=== PATIENT | female | born 1940 | race Caucasian/White ===

== ENCOUNTER 2016-08-31 12:20 | Emergency (ER) | payer MEDICARE, BC ==
[~2016-08-31 12:20] MED LIST: ADULT ASPIRIN81 MG PO; ADULT LOW DOSE81 M1 PO; ALIGN PO; ALIGN4 M1 PO; ALIGN4 MG PO; ALPHAGAN P10 ML OP; ALPHAGAN P5 M1 OP; ALPHAGAN P5 M1 RIGHT EYE; AMBIEN5 MG PO; AMITIZA8 MCG PO; AMLODIPINE BES2.5 M1 PO; AMLODIPINE BESY10 MG PO; AMLODIPINE BESYL5 MG PO; AMOXICILLIN875 M1 PO; ANTIVERT12.5 MG PO; ARICEPT5 M1 PO; ASPIRIN EC81 MG PO; ASPIRIN325 MG PO; ASPIRIN81 M1 PO; ATIVAN0.5 M1 PO; B-12500 MC1 PO; BENTYL20 MG PO; BETIMOL15 M OP; CALCIUM600 MG; CARAFATE PO; CARAFATE1 G2 PO; CARAFATE1 GM/10 M1 PO; CEFDINIR300 M1 PO; CENTRUM COMPLE1 EAC1 PO; CENTRUM SILVER1 EAC3 PO; CEPHALEXIN500 M1 PO; CHOLESTYRAMINE; CITRATE OF MAG300 ML PO; COLACE100 MG PO; COSOPT EYE DROP10 ML RIGHT EYE; CYCLOBENZAPRINE PO; CYCLOBENZAPRINE10 M1 PO; CYCLOBENZAPRINE5 M1 PO; CYMBALTA30 MG PO; DAILY MULTIPLE1 EAC2 PO; DEXILANT PO; DEXILANT30 M1 PO; DEXILANT60 M1 PO; DORZOLAMIDE HCL10 M1 OP; DORZOLAMIDE HCL10 M1 RIGHT EYE; DORZOLAMIDE-TIM10 ML OP; DOXYCYCLINE HY100 M3 PO; DULCOLAX10 MG/SUPP RC; FAMOTIDINE20 M1 PO; FLAX OIL1000 MG PO; FLAX SEED OIL1 EAC1 PO; FLAX SEED OIL1000 M1 PO; FLAXSEED OIL PO; FLEXERIL; GLYBURIDE5 MG PO; HYDROCHLOROTHIA25 MG; HYDROCHLOROTHIA25 MG PO; HYDROCODON-ACE1 EA17 PO; HYDROCODON-ACE1 EAC7 PO; HYDROCODONE; IMDUR30 MG PO; K-TAB ER20 ME1 PO; KEFLEX500 M4 PO; LEVEMIR FL100 UNIT/2 SC; LEVEMIR FL100 UNIT/2 SQ; LEVEMIR100 U/ML SQ; LEVEMIR100 UNITS/ SC; LINZESS; LINZESS145 MCG PO; LIPITOR20 MG; LISINOPRIL20 M1 PO; LISINOPRIL30 M1 PO; LISINOPRIL40 MG; LISINOPRIL40 MG PO; LOMOTIL1 TAB PO; LUMIGAN EACH EYE; LUMIGAN2.5 M1 OP; LUMIGAN2.5 M2 EACH EYE; LUMIGAN2.5 ML; LYRICA100 MG PO; LYRICA100 MG/CAP PO; LYRICA75 MG PO; MAGNESIUM OXID400 M1 PO; MAGNESIUM OXID400 MG PO; MAGNESIUM250 M2 PO; MAGNESIUM250 M3 PO; MAGNESIUM400 MG PO; MELATONIN3 M4 PO; METAMUCIL1 PKT PO; METFORMIN HCL850 MG; MILK OF MA400 MG/5 M PO; MIRALAX12 EA PO; MIRALAX17 G1 PO; MIRTAZAPINE15 MG PO; MULTIVITAMIN1 TAB PO; MUSCLE RELAXANT; NAMENDA5 M1 PO; NEOMYCIN POLYMY OT; NORCO 5-325 TA1 EACH PO; NORCO 7.5-3251 EACH PO; NORVASC10 M2 PO; NORVASC2.5 M1 PO; NORVASC2.5 MG PO; NORVASC5 M1 PO; NORVASC5 M2 PO; NORVASC5 MG PO; NOVOLOG FL100 UNIT/2 SC; NOVOLOG100 UNITS/ SC; NUCYNTA50 MG PO; OMEGA 3-6-9 11200 MG PO; OMEPRAZOLE BIC PO; ONGLYZA5 MG PO; OXYCODONE HCL5 MG PO; PANTOPRAZOLE SO40 M3 PO; PEPCID AC10 MG PO; PERCOCET 5/3251 TAB; PERCOCET 5/3251 TAB PO; PERCOCET 5MG/AP1 TA1 PO; PERCOCET 5MG/AP1 TAB PO; PHENERGAN12.5 MG; PHENERGAN25 MG/SUP1 PR; POTASSIUM CHLO20 ME3 PO; PRAVACHOL20 M1 PO; PRAVACHOL20 MG PO; PRAVASTATIN SOD20 M1 PO; PRILOSEC20 MG PO; PROTONIX20 M2 PO; PROTONIX40 M2 PO; QUETIAPINE FUMA25 M1 PO; RANITIDINE HCL150 M2 PO; RANITIDINE HCL150 M3 PO; RANITIDINE PO; REGLAN5 M1 PO; RESTORIL7.5 MG/CAP PO; SEROQUEL25 M2 PO; SKELAXIN800 MG PO; SUPER OMEGA-31000 MG; TRAMADOL HCL50 MG PO; TRUSOPT10 ML OP; TYLENOL325 M1 PO; ULTRAM50 MG PO; VALIUM5 M1 PO; VIBRAMYCIN100 M1 PO; VITAMIN B-121000 MC1 PO; VITAMIN B12-FO1 EAC1 PO; VITAMIN D3400 UNI4 PO; VITAMIN D35000 UNI2 PO; VITAMIN D35000 UNI3 PO; ZANTAC 7575 M1 PO; ZESTRIL20 M2 PO; ZESTRIL30 M1 PO; ZITHROMAX500 M2 PO; ZOFRAN ODT4 MG PO; ZOFRAN ODT4 MG/UDTAB PO; [UNRECOGNIZED DRUG - CODE] PO; [UNRECOGNIZED DRUG - OTHER]
[2016-08-31 13:21] LABS: BASO % 0.4 % (0-2); EOS % 1.5 % (0-7); EOSINOPHIL ABSOLUTE COUNT 0.1 tho/cmm (0.0-0.7); HCT-HEMATOCRIT 38.6 % (34.0-49.0); HGB-HEMOGLOBIN 13.5 gm/dl (12.0-15.5); IMMATURE GRANULOCYTES ABSOLUTE 0.01 tho/cmm (0-0.03); IMMATURE GRANULOCYTES PERCENT 0.1 % (0-0.3); LYMPH % 22.5 % (20-45); LYMPH ABSOLUTE COUNT 1.8 tho/cmm (0.8-4.5); MCH (MEAN CORPUSCULAR HGB) 32.2 pg (28.0-32.0); MCV (MEAN CELL VOLUME) 92.1 fl (82.0-96.0); MEAN PLATELET VOLUME 9.7 cmc (9.4-12.4); MONOCYTE ABSOLUTE COUNT 0.7 tho/cmm (0.0-1.2); NEUTROPHIL ABSOLUTE COUNT 5.4 tho/cmm (1.6-8.0); NEUTROPHIL-AUTOMATED 5.4 tho/cmm (1.6-8.0); NEUTROPHILS % 66.5 % (40-80); PLATELET COUNT 197 tho/cmm (150-450); RED BLOOD COUNT 4.19 mil/cmm (4.00-5.20); RED CELL DISTRIBUTION WIDTH 13.4 % (12.4-16.4); WHITE BLOOD COUNT 8.1 tho/cmm (4.0-10.0)
[2016-08-31 13:40] LABS: ALB/GLOB RATIO 1.1 (0.8-2.0); ALBUMIN 3.5 g/dl (3.5-5.0); ALKALINE PHOSPHATASE 122 U/L (33-138); ALT/SGPT 92 U/L (12-78); ANION GAP 11 mmol/L (0-20); AST/SGOT 134 U/L (10-40); BILIRUBIN,TOTAL 0.5 mg/dl (0-1.5); BLOOD UREA NITROGEN 17 mg/dl (6-24); CALCIUM 9.2 mg/dl (8.5-10.5); CARBON DIOXIDE-VENOUS 29 mmol/L (22-32); CHLORIDE 105 mmol/l (96-110); CREATININE 0.56 mg/dl (0.50-1.10); GLUCOSE 115 mg/dL (70-110); POTASSIUM 3.8 mmol/L (3.7-5.1); SODIUM 141 mmol/L (135-145); eGFR VALUE FOR BLACK >90 mL/Min
[2016-08-31] MEDS ORDERED: COLACE100 M1 PO (14:02)
[2016-12-29] MEDS ORDERED: LORAZEPAM0.5 M1 PO (11:59)
== END 2016-08-31 14:20 ==
LOC: EDMED 12:20
PROVIDERS: Emergency Medicine
DX: K59.00 Constipation, unspecified (principal); I10 Essential (primary) hypertension; K21.9 Gastro-esophageal reflux disease without esophagitis; E10.9 Type 1 diabetes mellitus without complications; E78.5 Hyperlipidemia, unspecified; I25.10 Atherosclerotic heart disease of native coronary artery without angina pectoris; Z87.01 Personal history of pneumonia (recurrent); Z86.718 Personal history of other venous thrombosis and embolism; Z90.49 Acquired absence of other specified parts of digestive tract

== ENCOUNTER 2016-09-30 23:45 | Emergency (ER) | payer MEDICARE, BC ==
[~2016-09-30 23:45] MED LIST changes: +COLACE100 M1 PO
[2016-10-01] MEDS ORDERED: ORPHENADRINE C100 M1 PO (00:22)
[2016-12-29] MEDS ORDERED: LORAZEPAM0.5 M1 PO (11:59)
== END 2016-10-01 00:34 ==
LOC: EDMED 23:45
DX: M62.830 Muscle spasm of back (principal); F03.90 Unspecified dementia, unspecified severity, without behavioral disturbance, psychotic disturbance, mood disturbance, and anxiety; E11.9 Type 2 diabetes mellitus without complications; I10 Essential (primary) hypertension; Z90.49 Acquired absence of other specified parts of digestive tract
CPT/HCPCS: J2360

== ENCOUNTER 2016-10-04 | Observation (INO) | payer MEDICARE, BC ==
[~2016-10-04] MED LIST changes: +ORPHENADRINE C100 M1 PO
[2016-10-04] MEDS ORDERED: WOMEN'S DAILY1 EAC6 PO (01:40)
[2016-10-04] MEDS ORDERED: COSOPT EYE DROP10 ML RIGHT EYE (09:41)
[2016-10-04] MEDS ORDERED: ICY HOT1 EAC1 TOP (14:49)
[2016-10-04] MEDS ORDERED: ASPERCREME76.5 GM TOP (14:49)
[2016-10-04] MEDS ORDERED: MELATONIN3 M4 PO (14:50)
[2016-12-29] MEDS ORDERED: LORAZEPAM0.5 M1 PO (11:59)
== END 2016-10-04 16:00 ==
DX: G89.29 Other chronic pain (principal); M54.9 Dorsalgia, unspecified; F03.90 Unspecified dementia, unspecified severity, without behavioral disturbance, psychotic disturbance, mood disturbance, and anxiety; D72.829 Elevated white blood cell count, unspecified; I10 Essential (primary) hypertension; E11.9 Type 2 diabetes mellitus without complications; E78.5 Hyperlipidemia, unspecified; I25.10 Atherosclerotic heart disease of native coronary artery without angina pectoris; H40.9 Unspecified glaucoma; K21.9 Gastro-esophageal reflux disease without esophagitis; Z79.4 Long term (current) use of insulin; Z79.899 Other long term (current) drug therapy; Z91.018 Allergy to other foods; Z87.891 Personal history of nicotine dependence; Z90.49 Acquired absence of other specified parts of digestive tract; Z98.890 Other specified postprocedural states

== ENCOUNTER 2016-10-07 | Emergency (ER) | payer MEDICARE, BC ==
[~2016-10-07] MED LIST changes: +ASPERCREME76.5 GM TOP; +ICY HOT1 EAC1 TOP; +WOMEN'S DAILY1 EAC6 PO
[2016-10-08] MEDS ORDERED: MACROBID 100 M100 M1 PO (14:25)
[2016-10-08] MEDS ORDERED: PYRIDIUM200 M2 PO (14:25)
[2016-12-29] MEDS ORDERED: LORAZEPAM0.5 M1 PO (11:59)
== END 2016-10-07 22:10 ==
DX: F03.90 Unspecified dementia, unspecified severity, without behavioral disturbance, psychotic disturbance, mood disturbance, and anxiety (principal); F20.9 Schizophrenia, unspecified; Z79.899 Other long term (current) drug therapy

== ENCOUNTER 2016-10-08 | Emergency (ER) | payer MEDICARE, BC ==
[2016-10-08] MEDS ORDERED: PYRIDIUM200 M2 PO (14:25)
[2016-10-08] MEDS ORDERED: MACROBID 100 M100 M1 PO (14:25)
[2016-12-29] MEDS ORDERED: LORAZEPAM0.5 M1 PO (11:59)
== END 2016-10-08 14:31 ==
DX: N39.0 Urinary tract infection, site not specified (principal); E11.9 Type 2 diabetes mellitus without complications; I10 Essential (primary) hypertension; F03.90 Unspecified dementia, unspecified severity, without behavioral disturbance, psychotic disturbance, mood disturbance, and anxiety; K21.9 Gastro-esophageal reflux disease without esophagitis; Z90.49 Acquired absence of other specified parts of digestive tract; Z90.89 Acquired absence of other organs; Z79.4 Long term (current) use of insulin; Z79.899 Other long term (current) drug therapy

== ENCOUNTER 2016-10-13 09:35 | Emergency (ER) | payer MEDICARE, BC ==
[~2016-10-13 09:35] MED LIST changes: +MACROBID 100 M100 M1 PO; +PYRIDIUM200 M2 PO
[2016-10-13] MEDS ORDERED: NITROFURANTOIN100 MG PO (09:53)
[2016-10-13] MEDS ORDERED: ULTRAM50 M1 PO (09:56)
[2016-10-13] MEDS ORDERED: LEVEMIR FL100 UNIT/2 SC (10:07)
[2016-10-13] MEDS ORDERED: CYCLOBENZAPRINE5 M1 PO (10:08)
[2016-12-29] MEDS ORDERED: LORAZEPAM0.5 M1 PO (11:59)
== END 2016-10-13 12:30 ==
LOC: EDMED 09:35
DX: S30.0XXA Contusion of lower back and pelvis, initial encounter (principal); F20.9 Schizophrenia, unspecified; W17.89XA Other fall from one level to another, initial encounter; Y92.89 Other specified places as the place of occurrence of the external cause

== ENCOUNTER 2016-10-24 07:23 | Emergency (ER) | payer MEDICARE, BC ==
[~2016-10-24 07:23] MED LIST changes: +NITROFURANTOIN100 MG PO; +ULTRAM50 M1 PO
[2016-10-24] MEDS ORDERED: ORPHENADRINE C100 M1 PO (07:38)
[2016-12-29] MEDS ORDERED: LORAZEPAM0.5 M1 PO (11:59)
== END 2016-10-24 08:03 ==
LOC: EDMED 07:23
DX: M54.5 Low back pain (principal); G89.29 Other chronic pain; F03.90 Unspecified dementia, unspecified severity, without behavioral disturbance, psychotic disturbance, mood disturbance, and anxiety; E11.9 Type 2 diabetes mellitus without complications; I10 Essential (primary) hypertension; K21.9 Gastro-esophageal reflux disease without esophagitis; Z90.49 Acquired absence of other specified parts of digestive tract; Z79.4 Long term (current) use of insulin; Z79.899 Other long term (current) drug therapy
CPT/HCPCS: J2360

== ENCOUNTER 2017-02-13 11:36 | Emergency (ER) | payer MEDICARE, BC ==
[~2017-02-13] VITALS: Ht 160 cm; Wt 52.7 kg
[~2017-02-13 11:36] MED LIST changes: +LORAZEPAM0.5 M1 PO
[2017-02-13] MEDS ORDERED: SEROQUEL50 M1 PO (11:56)
[2017-02-13 12:37] LABS: BASO % 0.5 % (0-2); EOS % 1.4 % (0-7); EOSINOPHIL ABSOLUTE COUNT 0.1 tho/cmm (0.0-0.7); HCT-HEMATOCRIT 42.9 % (34.0-49.0); HGB-HEMOGLOBIN 14.9 gm/dl (12.0-15.5); IMMATURE GRANULOCYTES ABSOLUTE 0.02 tho/cmm (0-0.03); IMMATURE GRANULOCYTES PERCENT 0.3 % (0-0.3); LYMPH % 24.1 % (20-45); LYMPH ABSOLUTE COUNT 1.9 tho/cmm (0.8-4.5); MCH (MEAN CORPUSCULAR HGB) 32.1 pg (28.0-32.0); MCHC MEAN CORPUSCULAR HGB CONC 34.7 % (32.0-36.0); MCV (MEAN CELL VOLUME) 92.5 fl (82.0-96.0); MEAN PLATELET VOLUME 9.7 cmc (9.4-12.4); MONO % 7.3 % (0-12); MONOCYTE ABSOLUTE COUNT 0.6 tho/cmm (0.0-1.2); NEUTROPHIL ABSOLUTE COUNT 5.3 tho/cmm (1.6-8.0); NEUTROPHIL-AUTOMATED 5.3 tho/cmm (1.6-8.0); NEUTROPHILS % 66.4 % (40-80); PLATELET COUNT 223 tho/cmm (150-450); RED BLOOD COUNT 4.64 mil/cmm (4.00-5.20); RED CELL DISTRIBUTION WIDTH 13.1 % (12.4-16.4)
[2017-02-13 12:50] LABS: ANION GAP 8 mmol/L (0-20); BLOOD UREA NITROGEN 14 mg/dl (6-24); CALCIUM 9.6 mg/dl (8.5-10.5); CARBON DIOXIDE-VENOUS 29 mmol/L (22-32); CHLORIDE 107 mmol/l (96-110); CREATININE 0.66 mg/dl (0.50-1.10); POTASSIUM 3.7 mmol/L (3.7-5.1); SODIUM 140 mmol/L (135-145); eGFR VALUE FOR BLACK >90 mL/Min
[2017-02-13 12:54] LABS: GLUCOSE 69 mg/dL (70-110)
== END 2017-02-13 13:38 ==
LOC: EDMED 11:36
PROVIDERS: Emergency Medicine
DX: R51 Headache (principal); E11.9 Type 2 diabetes mellitus without complications; I10 Essential (primary) hypertension; K21.9 Gastro-esophageal reflux disease without esophagitis; F03.90 Unspecified dementia, unspecified severity, without behavioral disturbance, psychotic disturbance, mood disturbance, and anxiety; Z86.718 Personal history of other venous thrombosis and embolism; Z90.49 Acquired absence of other specified parts of digestive tract; Z90.89 Acquired absence of other organs; Z79.4 Long term (current) use of insulin; Z79.899 Other long term (current) drug therapy